=== PATIENT | female | born 1985 ===

== ENCOUNTER 2022-10-18 17:27 | Emergency (ER) | payer OTHER ==
[~2022-10-18] VITALS: Ht 172.7 cm; Wt 57.6 kg
[2022-10-18 19:00] LABS: PLATELET COUNT 338 K/uL (152-353)
[2022-10-18 19:35] LABS: POTASSIUM 4.2 mmol/L (3.6-5.2)
== END 2022-10-18 21:10 | disposition home or self-care (01) ==
LOC: ED 17:27
PROVIDERS: Family Medicine
DX: N60.19 Diffuse cystic mastopathy of unspecified breast (principal); R53.1 Weakness; E86.0 Dehydration; D64.9 Anemia, unspecified
CPT/HCPCS: 36415; 80053; 80307; 81002; 81025; 82550; 85027; 87502; 99282